=== PATIENT | female | born 1980 | race Caucasian/White ===

== ENCOUNTER 2021-10-24 23:00 | Emergency (ER) | payer BC, SELFPAY ==
[2021-10-24 23:48] VITALS: BP 129/78; PULSE 62; RESP 18; TEMP 36.9; O2SAT 100; BMI 19.5
--- NOTE | 2021-10-25 00:41 | ED_ITS ---
HPI - General: Chief complaint: Vaginal Bleeding Stated complaint: 4 weeks Preg\Bleedinh Time Seen by Provider: 10/25/21 00:32 History of Present Illness: HPI Narrative: Patient is a 41-year-old female approximately 5 weeks and comes to the ED with vaginal bleeding. Patient says she has had approximately 3+ tests last couple days. According to her menstrual cycle she is approximately 5 weeks . She has not been in to see her OB doctor yet and was currently in the process of getting her first appointment with OB scheduled. Today she started developing some vaginal bleeding, and then cramping pelvic pain. She rates her cramping pain a 9 out of 10. She says it is in the lower pelvic region and radiates up on the right side of her body. She endorses having normal monthly periods, but does have a history of some painful menstruation. She endorses feeling nauseous but has not had any episodes of emesis. She took a Zofran and 500 mg Tylenol at home around 9 PM. Date of Last Menstrual Period: 09/17/21 Associated symptoms: Deny abdominal pain, dysuria, headache(s), nausea or vomiting Review of Systems Const: Denies: fever(s), chills or fatigue Eyes: Denies: change in vision or eye discomfort ENMT: Denies: throat pain, odynophagia, nasal discharge or nasal congestion Card: Denies: chest pain, palpitations, edema, swelling of feet/ankles, dyspnea on exertion or orthopnea Resp: Denies: dyspnea, productive cough or non-productive cough GI: Denies: abdominal pain, nausea, vomiting, diarrhea, constipation or hematochezia : Reports: vaginal bleeding and pelvic pain (Crampy pelvic pain); Denies: flank pain, difficulty voiding, dysuria or hematuria Musc: Denies: neck pain, back pain or extremity swelling Skin/Breast: Denies: rash or new lesions Neuro: Denies: headache(s), numbness in extremities or weakness in extremities [facility] Female Reproductive History: Date of last menstrual period: 09/17/21 Physical Exam Const: COMMON NORMALS: no acute distress, patient oriented x3, healthy appearing and alert GENERAL APPEARANCE: cooperative and comfortable HENMT: COMMON NORMALS: normocephalic HEAD & SCALP: normocephalic MOUTH: Normal oral and palatal mucosa present THROAT: posterior oropharynx normal and uvula midline Eye: COMMON NORMALS: Equal, round and reactive pupils present and conjunctivae normal CONJUNCTIVA: Yes conjunctivae normal PUPIL: Yes Equal, round and reactive pupils present Neck/C-Spine: COMMON NORMALS: supple GENERAL: Yes normal visual inspection Resp: COMMON NORMALS: normal respiratory effort, No retractions, No use of accessory muscles and clear to auscultation bilaterally AUSCULTATION: clear to auscultation bilaterally Cardio: COMMON NORMALS: regular rate, regular rhythm, S1 normal heart sound present, S2 normal heart sound present, No gallops present (Cardio), No clicks present (Cardio), No murmurs present (Cardio) and Peripheral pulses 2+ throughout RATE: regular rate RHYTHM: regular rhythm HEART SOUNDS: S1 normal heart sound present and S2 normal heart sound present PERIPHERAL PULSES: Peripheral pulses 2+ throughout GI: COMMON NORMALS: Normal to inspection, nondistended, normoactive bowel sounds present, Soft to palpation and no masses PALPATION: Yes Soft to palpation and Yes Tenderness to palpation present (GI) (Bilateral lower pelvic tenderness.) : COMMON NORMALS: Yes no CVA tenderness BLADDER/KIDNEY EXAM: Yes no CVA tenderness Back/Pelvis: COMMON NORMALS: no CVA tenderness Extremity: COMMON NORMALS: normal to inspection Neuro: COMMON NORMALS: patient oriented x3 and moves all extremities SENSORIUM/ORIENTATION: Yes alert Skin: GENERAL SKIN EXAM: dry skin Course Vital Signs: Vital signs: Vital Signs Temperature 98.4 F 10/24/21 23:48 Pulse Rate 62 10/24/21 23:48 Respiratory Rate 18 10/24/21 23:48 Blood Pressure 129/78 10/24/21 23:48 Pulse Oximetry 100 10/24/21 23:48 MDM - OB/Uterine Contractions MDM Narrative: Medical decision making narrative: Patient is a 41-year-old female who comes to the ED approximately 5 weeks with vaginal bleeding and cramping. Patient started developing vaginal bleeding and cramping today. Vitals stable. Exam is benign. CBC is unremarkable. hCG quant 3138. Rh-. Ultrasound showed some endometrial thickening consistent with history of pregna ncy and no visible intrauterine or adnexal identified. Normal ovarian perfusion bilaterally with no torsion. Patient was given RhoGam while here in the ED and hydrocodone and Reglan to help with pain and nausea. She was diagnosed with a spontaneous miscarriage and told to follow-up with her OB in approximately 3 days to recheck hCG quant levels and possibly have a ultrasound done in a week as needed. Return to ED precautions given. Patient was discharged home with some Reglan and hydrocodone to help with pain. Patient understood and agreed with plan. Lab Data: Attestation: I reviewed the patient's lab results. Labs: Lab Results 10/25/21 10/25/21 10/25/21 00:55 00:55 00:55 WBC 9.7 10^3/uL 10^3/ uL (4.0-10.0) RBC 3.93 10^6/uL L 10 ^6/uL (4.1-5.3) Hgb 12.4 g/dL g/dL (11.5-15.3) Hct 37.5 % % (37.0-47.0) MCV 95.4 fl fl (81-99) MCH 31.6 pg pg (28.0-34.0) MCHC 33.1 g/dL g/dL (30.0-36.0) RDW 15.0 % % (12.1-15.1) Plt Count 264 10^3/cmm 10^3 /cmm (130-400) MPV 9.7 fL fL (7.4-10.4) Neut % (Auto) 81.2 % % Lymph % (Auto) 12.8 % % [place] % (Auto) 5.3 % % Eos % (Auto) 0.0 % % Baso % (Auto) 0.4 % % Neut # (Auto) 7.85 10^3/uL H 10 ^3/uL (1.8-7.7) Lymph # (Auto) 1.2 10^3/uL 10^3/ uL (0.8-4.8) [place] # (Auto) 0.5 10^3/uL 10^3/ uL (0.2-0.9) Eos # (Auto) 0.0 10^3/uL 10^3/ uL (0.0-0.8) Baso # (Auto) 0.0 10^3/uL 10^3/ uL (0.0-0.1) Nucleated RBC % (a uto) 0 % % Nucleated RBCs # 0.0 /100WBC /100W BC Ser , [place] i-Qnt 3138.00 mIU/mL mI U/mL Blood Type A Negative Rho(D) Type Negative Antibody Screen Negative Imaging Data^: US OB: Attestation: I personally reviewed and interpreted this imaging study as follows: Radiologist's impression: Ultrasound OB/prelim report-no intrauterine identified. [place] [address] Ultrasound Report Signed Patient: Radha Roberts Unit #: [id number] : [id number] Age/Sex: 41 / F ADM Date: 10/24/21 Loc: ER Room/Bed: Attending Dr: Ordering Provider/Ordering MD: Bernardo Li Date of Service: 10/25/21 Procedure(s): US OB <=14 wk fetus w transvag Accession Number(s): [id number] Report Number: [id number] PROCEDURE INFORMATION: Exam: US First Trimester, Transabdominal and US , Transvaginal Exam date and time: 10/25/2021 12:43 AM Age: 41 years old Clinical indication: complicated by abdominal or pelvic pain; Lower; First trimester (<14 weeks 0 days); Gestational age or lmp: 5 week 1 day; ; Additional info: 5 weeks with vaginal bleeding and cramping TECHNIQUE: Imaging protocol: Real-time transabdominal obstetrical ultrasound of the maternal pelvis and a first trimester , less than 14 weeks 0 days, with image documentation. Transvaginal imaging was used for better evaluation of the fetus, adnexa, and/or cervix. COMPARISON: No relevant prior studies available. FINDINGS: Gestation: 16 mm endometrial thickening consistent with history of . No visible intrauterine or adnexal . MATERNAL: Uterus: Unremarkable. Cervix: Unremarkable. Right ovary/adnexa: 3.0 x 2.8 x 3.0 cm right ovary with estimated volume 13.0 cc. Normal ovarian perfusion bilaterally with no torsion. Left ovary/adnexa: 3.0 x 2.1 x 2.3 cm left ovary with estimated volume 7.5 cc. Intraperitoneal space: No intraperitoneal free fluid. US/US OB <=14 wk fetus w transvag IMPRESSION: 1. 16 mm endometrial thickening consistent with history of . 2. No visible intrauterine or adnexal . 3. Normal ovarian perfusion bilaterally with no torsion. Serial quantitative hCGs and/or followup ultrasound may be helpful. Radiation Dose CTDIVOL = (mGy): DLP = (mGy-cm) Dictated By: Kaiden Frederick MD Signed By: Kaiden Frederick MD Signed Date/Time: 10/25/217 DD/ Discharge Plan Discharge Patient Disposition: Home Clinical Impression: Spontaneous miscarriage Condition: Stable Prescriptions: New Reglan 10 mg tablet 10 mg PO Q6H PRN (Reason: nausea and vomiting) Qty: 20 RF: 0 Discharge Orders: Discharge ED (Routine); Ordered 10/25/21 Ordered By: Bernardo Li Discharge Diet: Regular Discharge Activity: Increase activity as tolerated Patient Instructions: Miscarriage (ED), Opioid Safety Activity Restrictions/Additional Instructions: Follow-up with medical provider as directed. Contact your OB doctor and recheck hCG levels in 3 days. Of OB doctor perform a follow-up ultrasound as needed in about a week. Take medications as prescribed. Return to the ER or your medical provider if condition worsens. Please read and understand discharge instructions. Thank you for choosing [facility] for your healthcare needs today. Please realize this is an emergency room and that we are providing you with a me dical screening exam and this may not be complete and all inclusive of all the testing and or work up that you may need to determine your ailment or severity of your illness. It is very important that you follow up as instructed or that you return to the Emergency Department should you have concerns or if your condition changes or worsens in any way. Coding Level of Care Code ED Filler Room Attendant for Chg Fwd Exam Comprehensive
[2021-10-25 00:59] LABS: Basophils % 0.4 %; Hematocrit 37.5 % (37.0-47.0); Hemoglobin 12.4 g/dL (11.5-15.3); Lymphocytes # 1.2 10^3/uL (0.8-4.8); Lymphocytes % 12.8 %; Mean Corpuscular HGB Conc 33.1 g/dL (30.0-36.0); Mean Corpuscular Hemoglobin 31.6 pg (28.0-34.0); Mean Corpuscular Volume 95.4 fl (81-99); Mean Platelet Volume 9.7 fL (7.4-10.4); Monocytes # 0.5 10^3/uL (0.2-0.9); Monocytes % 5.3 %; Neutrophils # 7.85 10^3/uL (1.8-7.7); Neutrophils % 81.2 %; Nucleated Red Blood Cells % 0 %; Platelet Count 264 10^3/cmm (130-400); Red Blood Count 3.93 10^6/uL (4.1-5.3); White Blood Count 9.7 10^3/uL (4.0-10.0)
[2021-10-25] MEDS: HYDROcodone-acetaminophen 7.5-325 mg Tablet 1 TAB PO (01:09)
[2021-10-25] MEDS: metoclopramide 10 mg Tablet PO (01:09)
--- NOTE | 2021-10-25 03:22 | PC.NURSE ---
Rhogam given. Lot number [id number] Exp date. Sep.
[2021-10-25 03:59] VITALS: BP 122/74; PULSE 60; RESP 18; O2SAT 100
== END 2021-10-25 04:00 | disposition home or self-care (01) ==
PROVIDERS: Emergency Medicine; Emergency Provider Physician Assistant
DX: O03.9 Complete or unspecified spontaneous abortion without complication (principal)
CPT/HCPCS: 76801; 76817; 84702; 85025; 86850; 86900; 90384; 99283; J8597

== ENCOUNTER → 2021-10-31 08:21 | Outpatient (BNVA) | payer BC, SELFPAY | PROVIDERS: Visit Provider Nurse Practitioner Women's Health | DX: O20.0 Threatened abortion (principal) | CPT/HCPCS: 84702 ==

== ENCOUNTER → 2021-11-06 15:19 | Outpatient (BNVA) | payer BC, SELFPAY | PROVIDERS: Visit Provider Nurse Practitioner Women's Health | DX: O03.4 Incomplete spontaneous abortion without complication (principal) | CPT/HCPCS: 84702; 85025 ==